=== PATIENT | male | born 1930 | race Caucasian/White ===

== ENCOUNTER 2017-01-24 07:29 | Emergency (ER) | payer OTHER ==
[~2017-01-24] VITALS: Ht 172.7 cm; Wt 70.4 kg
[~2017-01-24 07:29] MED LIST: BACTRIM,SEPT1 TABLET PO; CARDURA2 M1 PO; LEVOFLOXACIN750 MG PO; NAPROXEN375 M1 PO; TRAMADOL HCL50 MG PO; ZOFRAN4 MG PO
[2017-01-24 09:43] VITALS: BP 138/87
== END 2017-01-24 09:44 | disposition home or self-care (01) ==
LOC: EME 07:29
DX: M25.462 Effusion, left knee (principal); S80.212A Abrasion, left knee, initial encounter; S63.501A Unspecified sprain of right wrist, initial encounter; W01.0XXA Fall on same level from slipping, tripping and stumbling without subsequent striking against object, initial encounter; Z87.891 Personal history of nicotine dependence
CPT/HCPCS: 73564; 99281; 99284